=== PATIENT | female | born 1975 | race Caucasian/White ===

== ENCOUNTER → 2017-06-28 22:17 | Outpatient (CLI) | payer BC, SELFPAY ==
[2017-07-01 13:44] LABS: HPV Reflexed? NOT INDICATED
== END ==
PROVIDERS: Family Provider Family Medicine; PCP Family Medicine; Visit Provider Obstetrics & Gynecology
DX: Z12.4 Encounter for screening for malignant neoplasm of cervix (principal)
CPT/HCPCS: 88175; G0145

== ENCOUNTER 2017-09-20 07:51 | Emergency (ER) | payer BC, SELFPAY ==
[2017-09-20 07:53] VITALS: BP 132/82; PULSE 87; RESP 16; TEMP 36.8; O2SAT 100; BMI 23.3
[2017-09-20 07:56] VITALS: O2SAT 100
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
[2017-09-20 08:16] VITALS: BP 127/64; PULSE 71; RESP 16; O2SAT 98
[2017-09-20] MEDS: Naproxen 250 MG Tablet 500 MG PO (08:16)
[2017-09-20] MEDS: Ondansetron ODT 4 MG Tablet PO (08:16)
== END 2017-09-20 08:17 | disposition home or self-care (01) ==
PROVIDERS: Emergency Provider Emergency Medicine; Family Provider Family Medicine; PCP Family Medicine
DX: S16.1XXA Strain of muscle, fascia and tendon at neck level, initial encounter (principal); V43.52XA Car driver injured in collision with other type car in traffic accident, initial encounter; Y93.I9 Activity, other involving external motion; Y92.410 Unspecified street and highway as the place of occurrence of the external cause; Y99.8 Other external cause status
CPT/HCPCS: 99284

== ENCOUNTER → 2017-11-16 12:18 | Outpatient (CLI) | payer BC, SELFPAY ==
--- NOTE | 2017-11-16 12:21 | RAD_ITS ---
STUDY: X-RAY - CERVICAL SPINE REASON FOR EXAM: Female, 42 years old. Pain radiating to left arm TECHNIQUE: 5 view(s) of the cervical spine were obtained. COMPARISON: None FINDINGS: Normal anterior atlantoaxial articulation. Normal odontoid process. Normal cervical lordosis. Normal vertebral bodies and endplates. Normal disc space heights. Normal visualized intervertebral neuroforamina. The soft tissue structures are unremarkable. RAD/Cerv Spine 4 or 5 Views IMPRESSION: Normal x-ray examination of the visualized cervical spine. Electronically Signed: Sean Woodard DO at 14:19 EDT Tel [phone], Service support ,
== END ==
PROVIDERS: Family Provider Family Medicine; PCP Family Medicine; Visit Provider Family Medicine
DX: M79.602 Pain in left arm (principal)
CPT/HCPCS: 72050

== ENCOUNTER 2017-11-30 16:30 | Outpatient (RCR) | payer BC, SELFPAY ==
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
--- NOTE | 2017-11-09 19:09 | HP.PTREVAL_ITS ---
Endy Mchugh, It has been my pleasure to treat PORTIA YANES over the last 8 visits for lateral neck/shoulder. Please see the progress note below for an update on the physical therapy plan of care! Subjective: Pt reports that she has a little bit of pain in the neck....with any activity at home she has pain from the mid back and down to the LB. Dr gave her some meds to make her drowsy to sleep...stronger than a muscle relaxor. Pt reports that the Dr gave her 6 injections and she was in horrible pain and was not a fan of trying dry needling because of the reaction she got from the DR. Pt reports that she does not feel too bad when she leaves here but then that evening and then the neck day it is worse. SHe feels that her back is so stiff if she sleeps on her side. Objective/Function: R handed...R 24# and L 28#. C-spine AROM: flex 100%, Rot B 85%, SB B 85%, Ext 85% ( increase pain). UE MMT: flex, abd ER, and IR B 4/ 5. Palpation: tender along B levator scap...mid traps feels good with minor palpable tightness. Plan Plan: Start postural exercises and scapular exercises. May do some levator sctetches and some MT to that area. See if avoiding MT for a while and work on the postual modification help to decrease her pain. Goals Goal 1:: I HEP Goal Time Frame: 4-6 Weeks Goal 2:: Decrease neck and shoulder blade pain on the L to 1/10 with ADL's Goal Time Frame: 4-6 Weeks Goal 3:: Sit with upright posture duing treatment sessions. Goal Time Frame: 4-6 Weeks Anticipated Interventions Patient/Client Instruction: Educate patient on: Condition, Plan of Care For the Purpose of:: To decrease pain, To decrease swelling/inflammation, To increase ROM, To improve nutrient delivery to tissue, To improve muscle performance and motor function, To improve ability to perform ADL's, To increase tolerance to activity/condition/position, To improve performance and independence with ADL's, To improve ability of physical actions for home/ community/work/leisure, To improve health of tissue, To decrease soft tissue restriction, To increase flexibility/ROM Therapeutic Exercise to Include: Strength training, Postural training, Flexibilty training, Passive ROM, Dynamic Lumbar Stabilization, Scapular Strength/Stabilization For the Purpose of:: To decrease pain, To decrease swelling/inflammation, To increase ROM, To improve nutrient delivery to tissue, To improve muscle performance and motor function, To improve ability to perform ADL's, To increase tolerance to activity/condition/position, To improve ability of physical actions for home/community/work/leisure, To improve health of tissue, To decrease soft tissue restriction, To increase flexibility/ROM Manual Therapy Techniques to Include: Mobilization, Passive ROM, Soft tissue mobilization For the Purpose of:: To decrease pain, To decrease swelling/inflammation, To increase ROM, To improve nutrient delivery to tissue, To improve muscle performance and motor function, To improve ability to perform ADL's, To improve health of tissue, To decrease soft tissue restriction, To increase flexibility/ ROM IF ES: Yes Cryotherapy (ice pack, ice massage): Yes Thermo therapy (hot pack): Yes Ultrasound (thermal/non thermal): Yes For the Purpose of:: To decrease pain, To decrease swelling/inflammation, To increase ROM, To improve nutrient delivery to tissue, To improve muscle performance and motor function, To improve ability to perform ADL's Please do not hesitate to contact me at [phone] by phone or Fax: if you have questions or concerns regarding this new plan of care! Sincerely, Lindsey Pettit
--- NOTE | 2017-11-11 09:50 | HP.PTREVAL_ITS ---
Endy Mchugh, It has been my pleasure to treat PORTIA YANES over the last 8 visits for lateral neck/shoulder. Please see the progress note below for an update on the physical therapy plan of care! Subjective: Pt reports that she has a little bit of pain in the neck....with any activity at home she has pain from the mid back and down to the LB. Dr gave her some meds to make her drowsy to sleep...stronger than a muscle relaxor. Pt reports that the Dr gave her 6 injections and she was in horrible pain and was not a fan of trying dry needling because of the reaction she got from the DR. Pt reports that she does not feel too bad when she leaves here but then that evening and then the neck day it is worse. SHe feels that her back is so stiff if she sleeps on her side. Objective/Function: R handed...R 24# and L 28#. C-spine AROM: flex 100%, Rot B 85%, SB B 85%, Ext 85% ( increase pain). UE MMT: flex, abd ER, and IR B 4/ 5. Palpation: tender along B levator scap...mid traps feels good with minor palpable tightness. Plan Plan: Discussed lack of progress with her pain level and the idea that sometimes trauma pain takes a while to heal. Discussed changing POC from more manual to more postural strengthening. Discussed changing her sleeping position and using a c-spine towel roll inside pillow and to not roll shoulder fw while sleeping. 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 PT Plan: Start postural exercises and scapular exercises. May do some levator sctetches and some MT to that area. See if avoiding MT for a while and work on the postual strength and modification help to decrease her pain. Goals Goal 1:: I HEP Goal Time Frame: 4-6 Weeks Goal 2:: Decrease neck and shoulder blade pain on the L to 1/10 with ADL's Goal Time Frame: 4-6 Weeks Goal 3:: Sit with upright posture duing treatment sessions. Goal Time Frame: 4-6 Weeks Anticipated Interventions Patient/Client Instruction: Educate patient on: Condition, Plan of Care For the Purpose of:: To decrease pain, To decrease swelling/inflammation, To increase ROM, To improve nutrient delivery to tissue, To improve muscle performance and motor function, To improve ability to perform ADL's, To increase tolerance to activity/condition/position, To improve performance and independence with ADL's, To improve ability of physical actions for home/ community/work/leisure, To improve health of tissue, To decrease soft tissue restriction, To increase flexibility/ROM Therapeutic Exercise to Include: Strength training, Postural training, Flexibilty training, Passive ROM, Dynamic Lumbar Stabilization, Scapular Strength/Stabilization For the Purpose of:: To decrease pain, To decrease swelling/inflammation, To increase ROM, To improve nutrient delivery to tissue, To improve muscle performance and motor function, To improve ability to perform ADL's, To increase tolerance to activity/condition/position, To improve ability of physical actions for home/community/work/leisure, To improve health of tissue, To decrease soft tissue restriction, To increase flexibility/ROM Manual Therapy Techniques to Include: Mobilization, Passive ROM, Soft tissue mobilization For the Purpose of:: To decrease pain, To decrease swelling/inflammation, To increase ROM, To improve nutrient delivery to tissue, To improve muscle performance and motor function, To improve ability to perform ADL's, To improve health of tissue, To decrease soft tissue restriction, To increase flexibility/ ROM IF ES: Yes Cryotherapy (ice pack, ice massage): Yes Thermo therapy (hot pack): Yes Ultrasound (thermal/non thermal): Yes For the Purpose of:: To decrease pain, To decrease swelling/inflammation, To increase ROM, To improve nutrient delivery to tissue, To improve muscle performance and motor function, To improve ability to perform ADL's Please do not hesitate to contact me at [phone] by phone or Fax: if you have questions or concerns regarding this new plan of care! Sincerely, Lindsey Pettit
--- NOTE | 2017-11-30 18:00 | HP.PTREVAL_ITS ---
Endy Mchugh, It has been my pleasure to treat PORTIA YANES over the last 12 visits for lateral neck/shoulder. Please see the progress note below for an update on the physical therapy plan of care! Subjective: Pt said that her Dr referred her to Orthopedic and got an appointment but cant get an appointment till Nov. SHe reports that everytime she starts exercise that she gets JOSE for 3 days in a row. After she was here last time and did have JOSE for 3 days and it is a bad JOSE and wont go away. Once the pain is started no matter what she does it will not go away. 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 Pt reports that she defintly has had improvement with neck ROM and as long as that JOSE doesnt come on she is good. Also the back pain is bad with normal movement and ADL's Objective/Function: C-spine AROM: flexion 100%, ext 50% (increase pain), SB B 75%m Rot B 100%. UE MMT: B grossly 4/5 B shld flex, abd, ER, and IR Plan Plan: Hold PT at this point. Pt feels that PT is making her worse. SHe will see if she can get into an ortho Dr earlier and return to Dr Mchugh. Goals Goal 1:: I HEP Goal Time Frame: 4-6 Weeks Goal Progress: Goal Met Goal 2:: Decrease neck and shoulder blade pain on the L to 1/10 with ADL's Goal Time Frame: 4-6 Weeks Goal Progress: Not Progressing Goal 3:: Sit with upright posture duing treatment sessions. Goal Time Frame: 4-6 Weeks Goal Progress: Progressing Anticipated Interventions Patient/Client Instruction: Educate patient on: Condition, Plan of Care For the Purpose of:: To decrease pain, To decrease swelling/inflammation, To increase ROM, To improve nutrient delivery to tissue, To improve muscle performance and motor function, To improve ability to perform ADL's, To increase tolerance to activity/condition/position, To improve performance and independence with ADL's, To improve ability of physical actions for home/ community/work/leisure, To improve health of tissue, To decrease soft tissue restriction, To increase flexibility/ROM Therapeutic Exercise to Include: Strength training, Postural training, Flexibilty training, Passive ROM, Dynamic Lumbar Stabilization, Scapular Strength/Stabilization For the Purpose of:: To decrease pain, To decrease swelling/inflammation, To increase ROM, To improve nutrient delivery to tissue, To improve muscle performance and motor function, To improve ability to perform ADL's, To increase tolerance to activity/condition/position, To improve ability of physical actions for home/community/work/leisure, To improve health of tissue, To decrease soft tissue restriction, To increase flexibility/ROM Manual Therapy Techniques to Include: Mobilization, Passive ROM, Soft tissue mobilization For the Purpose of:: To decrease pain, To decrease swelling/inflammation, To increase ROM, To improve nutrient delivery to tissue, To improve muscle performance and motor function, To improve ability to perform ADL's, To improve health of tissue, To decrease soft tissue restriction, To increase flexibility/ ROM IF ES: Yes Cryotherapy (ice pack, ice massage): Yes Thermo therapy (hot pack): Yes Ultrasound (thermal/non thermal): Yes For the Purpose of:: To decrease pain, To decrease swelling/inflammation, To increase ROM, To improve nutrient delivery to tissue, To improve muscle performance and motor function, To improve ability to perform ADL's Please do not hesitate to contact me at [phone] by phone or Fax: if you have questions or concerns regarding this new plan of care! Sincerely, Lindsey Pettit
--- NOTE | 2018-02-03 12:53 | HP.PT.NRP ---
HP - Discharge Summary (1) - Patient Information PORTIA YANES was seen in my office for initial evaluation on 10/05/17. The following Plan of Care was established for this patient: Initial Frequency: 2x /Week Initial Duration: 6 Weeks - Anticipated Interventions Patient/Client Instruction: Educate patient on: Condition, Plan of Care For the Purpose of:: To decrease pain, To decrease swelling/inflammation, To increase ROM, To improve nutrient delivery to tissue, To improve muscle performance and motor function, To improve ability to perform ADL's, To increase tolerance to activity/condition/position, To improve performance and independence with ADL's, To improve ability of physical actions for home/community/work/leisure, To improve health of tissue, To decrease soft tissue restriction, To increase flexibility/ROM Therapeutic Exercise to Include: Strength training, Postural training, Flexibilty training, Passive ROM, Dynamic Lumbar Stabilization, Scapular Strength/Stabilization For the Purpose of:: To decrease pain, To decrease swelling/inflammation, To increase ROM, To improve nutrient delivery to tissue, To improve muscle performance and motor function, To improve ability to perform ADL's, To increase tolerance to activity/condition/position, To improve ability of physical actions for home/community/work/leisure, To improve health of tissue, To decrease soft tissue restriction, To increase flexibility/ROM Manual Therapy Techniques to Include: Mobilization, Passive ROM, Soft tissue mobilization For the Purpose of:: To decrease pain, To decrease swelling/inflammation, To increase ROM, To improve nutrient delivery to tissue, To improve muscle performance and motor function, To improve ability to perform ADL's, To improve health of tissue, To decrease soft tissue restriction, To increase flexibility/ROM IF ES: Yes Cryotherapy (ice pack, ice massage): Yes Thermo therapy (hot pack): Yes Ultrasound (thermal/non thermal): Yes For the Purpose of:: To decrease pain, To decrease swelling/inflammation, To increase ROM, To improve nutrient delivery to tissue, To improve muscle performance and motor function, To improve ability to perform ADL's This patient was last seen in our office 11/30/17. Pertinent comments regarding their Physical therapy will appear below: Pt was going to go back to physician. [facility]. At this point I will be discontinuing this patient from physical therapy. I would be happy to see this patient again in the future if found appropriate by the physician. Thank you! Lindsey Pettit
== END 2017-11-30 19:00 | disposition home or self-care (01) ==
LOC: PT 16:30
PROVIDERS: Family Provider Family Medicine; PCP Family Medicine; Visit Provider Family Medicine
DX: M54.2 Cervicalgia (principal)
CPT/HCPCS: 97014; 97110; 97140; 97162; 97530; G0283

== ENCOUNTER → 2017-12-09 15:59 | Outpatient (CLI) | payer BC, SELFPAY | PROVIDERS: Family Provider Family Medicine; PCP Family Medicine; Visit Provider Family Medicine | DX: M54.2 Cervicalgia (principal) | CPT/HCPCS: 72141 ==

== ENCOUNTER → 2018-02-20 14:42 | Outpatient (CLI) | payer BC, SELFPAY | PROVIDERS: Visit Provider Obstetrics & Gynecology | DX: R30.0 Dysuria (principal); R31.9 Hematuria, unspecified; R35.0 Frequency of micturition | CPT/HCPCS: 87077; 87086; 87088; 87186 ==

== ENCOUNTER 2023-11-02 15:54 | Emergency (ER) | payer BC, SELFPAY ==
[2023-11-02 15:55] VITALS: BP 145/80; PULSE 65; RESP 18; TEMP 36.9; O2SAT 100; BMI 23.2
--- NOTE | 2023-11-02 16:09 | EKG12_ITS ---
Test Reason : CP Blood Pressure : / mmHG Vent. Rate : 067 BPM Atrial Rate : 067 BPM P-R Int : 102 ms QRS Dur : 090 ms QT Int : 386 ms P-R-T Axes : 031 012 057 degrees QTc Int : 407 ms Sinus rhythm with short ID Otherwise normal ECG Confirmed by SINAI FERMIN, BRIGHT ([id number]), multimedia editor CHRISTIAN GOMEZ ([id number]) on 11/08/2023 1:45:54 PM Referred By: REYES/ASH Confirmed By:KAMINI RAWLS MD
--- NOTE | 2023-11-02 16:09 | RAD_ITS ---
STUDY: X-RAY CHEST REASON FOR EXAM: Female, 48 years old. chest pain TECHNIQUE: AP portable COMPARISON: November 10, 2006 FINDINGS: The lungs are clear and expanded. There is no demonstrated pleural abnormality. Normal size heart. Normal mediastinum and keith. Normal visualized pulmonary arteries. Normal visualized aortic arch and descending thoracic aorta. Dorsal spine demonstrates mild scoliosis or splinting Normal visualized ribs, clavicles, and shoulders. There is no demonstrated abnormality of the visualized soft tissue structures of the upper abdomen. RAD/Chest 1 View (Portable) IMPRESSION: No acute cardiopulmonary pathology. Electronically Signed: Zachary Arce MD at 17:01 EDT ,
--- NOTE | 2023-11-02 16:17 | ED.RN ---
NO OLD EKGS
[2023-11-02 16:20] LABS: Absolute Lymphocyte Count 1.99 X10^3/uL (0.83-4.51); Absolute Neutrophil Count 2.1 X10^3/uL (2.0-7.7); Basophil# 0.02 X10^3/uL; Basophil% 0.4 % (0-1); Eosinophil# 0.08 X10^3/uL; Eosinophils% 1.7 % (0-5); Hematocrit 38.8 % (37-47); Hemoglobin 12.5 g/dL (12.0-15.0); Lymphocyte # 1.99 X10^3/ul (0.83-4.51); Lymphocyte % 43.1 % (19-41); Mean Corp Hgb Conc 32.2 g/dL (32-36); Mean Corpuscular Hgb 26.3 pg (27.0-32.0); Mean Corpuscular Volume 81.7 fL (81-99); Mean Platelet Vol. 10.5 fl (6.2-12.0); Monocyte% 8.7 % (0-10); NRBC Flagged by Analyzer 0 % (0-5); Neutrophil # 2.11 X10^3/uL (2.7-7.7); Neutrophil % 45.7 % (47-70); Platelet Count 199 K/mm3 (150-450); RBC Distribution Width CV 14.4 % (11.6-14.6); Red Blood Count 4.75 M/mm3 (4.2-5.4); White Blood Count 4.6 K/mm3 (4.4-11.0)
--- NOTE | 2023-11-02 16:23 | EDS_ITS ---
HPI History of Present Illness Chief Complaint: Chest Pain Narrative Narrative: 48-year-old female presenting with chest pain which started last evening. She states it started about 8 and was about a 6/10 until midnight when she fell asleep. She woke up today and states she felt better although she had a low- grade pressure-like feeling in her left chest. She states that she ate a lunch meat sandwich today which is not atypical for her. She started to have epigastric pain from 2-3 which is now better. She states she had a little bit of nausea with it. She states the pain in her epigastric region today radiated to her back. She denies fever, chills, myalgias. She denies cardiac history. No history of DVT/PE no risk factors. Patient denies smoking and alcohol use. PFSH PFS Medical History Environmental allergies Bilateral headaches Home Medications ?Medication ?Instructions ?Recorded ?Last Taken ?Type hydrocodone-acetaminophen 5-325mg 1 - 2 ea PO 4X/DAY PRN PRN Pain 3 09/20/17 Unknown Rx 5mg-325mg ([facility]) days #12 tabs naproxen 500 mg tablet 500 mg PO BID #14 tabs 09/20/17 Unknown Rx ondansetron 4 mg disintegrating 4 mg PO Q8H PRN PRN Nausea #10 tabs 09/20/17 Unknown Rx tablet Allergy/AdvReac Type Severity Reaction Status Date / Time Seasonal Allergies: Uncoded Allergy NEEDS Verified 11/02/23 15:55 FOLLOW-UP Family History Other Hypertension Social History Smoking Status: Never smoker alcohol intake: never substance use type: does not use what type of physical activity do you participate in: none ROS ROS ED Constitutional Constitutional ED: Denies chills, fever(s) or sweats Eyes Eyes: Denies blurry vision or change in vision ENT ENT ED: Denies ear pain or sore throat Cardiovascular Cardiovascular: Reports chest pain; Denies palpitations or racing heartbeat Respiratory/Chest Respiratory/Chest: Denies cough, dyspnea or sputum Gastrointestinal Gastrointestinal: Reports abdominal pain and nausea; Denies constipation, diarrhea or vomiting Genitourinary Genitourinary ED: Denies dysuria, hematuria or urinary frequency Musculoskeletal Musculoskeletal: Denies arthralgias, myalgias or neck pain Integumentary Denies abscess, Abrasions or rash Neurologic Neurologic: Denies headache(s), paresthesias or weakness Psychiatric Psychiatric: Denies anxiety, depression, suicidal ideation or suicidal thoughts Endocrine Endocrinology: Denies polydipsia or polyuria EXAM Physical Exam Const Vital Signs: 11/02/23 15:55 11/02/23 16:26 11/02/23 17:02 Temperature 98.4 F Temperature Source Oral Pulse Rate 65 57 L Respiratory Rate 18 18 Blood Pressure 145/80 H 143/96 H Blood Pressure Mean 101 111 Pulse Ox 100 99 Oxygen Delivery Method Room Air Room Air Room Air 11/02/23 17:49 Temperature 98.4 F Temperature Source Pulse Rate 61 Respiratory Rate 10 L Blood Pressure 126/79 H Blood Pressure Mean 94 Pulse Ox 98 Oxygen Delivery Method Positive well nourished General Appearance ED: NAD HEENT Reports moist mucous membranes normocephalic and atraumatic Chest Wall inspection of chest normal Resp normal respiratory effort and clear to auscultation bilaterally Auscultation: Negative for rales, rhonchi or wheezes Cardio regular rate and regular rhythm GI normal to inspection, nondistended, normoactive bowel sounds, soft to palpation, non-tender and non-distended Back/Spine no CVA tenderness and no thoracic nor lumbar tenderness Neuro oriented x3 and CN's II-XII intact bilaterally Sensorium / Orientation: awake and alert Psych mental status grossly normal Skin no rashes or lesions noted and no wounds Heart Score History: Slightly/Non-Suspicious ECG: Normal Age: >45 - <65 years Risk Factors: No Risk Factors Troponin: </= Normal Limit Score: 1 MDM MDM MDM Narrative Medical decision making narrative: Patient presenting with chest pain. Differential includes but is not limited to ACS, PE, aortic dissection, pneumonia, pneumothorax, muscle strain, costochondritis. Patient is however PERC negative. Patient is not having tearing sensation to suggest dissection. She has equal symmetric breath sounds chest wall rise due to lightheadedness on MiraLAX. She is also having abdominal pain however she is not tender on exam. Differential also includes colitis, diverticulitis, gastritis, pancreatitis, cholelithiasis, cholecystitis, constipation, appendicitis, obstruction, malignancy, dehydration, electrolyte abnormalities. CBC will be obtained to assess white blood cell count, hemoglobin, platelets. CMP to assess renal function, electrolytes, liver function, glucose. Lipase to assess for pancreatitis. Urinalysis to assess for UTI. High-sensitivity troponin and EKG to assess for ischemia/dysrhythmia. Chest x-ray to rule out pneumonia. Patient declines analgesia at this time. EKG interpreted by myself shows a sinus rhythm at 67 bpm without sign of ischemic change. CBC shows normal white blood cell count at 4.6. Hemoglobin 12.5. Platelets normal 199. Renal function and electrolytes within normal limits. LFTs are normal. Lipase is normal. Chest x-ray interpreted by myself shows no acute cardiopulmonary process. Radiologist interprets this and agrees. Given the patient has had this pain since yesterday I do not believe she is a delta troponin. We did discuss this at length and she did inform me that she started a vigorous workout routine which she does not normally do including back exercises and chest Fly movements. I believe this is most like the cause of her pain. I counseled her to alternate Tylenol and ibuprofen. Return precautions discussed. Impression: 1. Chest pain 2. Abdominal pain Lab Data Attestation: I reviewed the patient's lab results. Labs: Laboratory Results - last 24 hr 11/02/23 16:13 WBC 4.6 RBC 4.75 Hgb 12.5 Hct 38.8 MCV 81.7 MCH 26.3 L MCHC 32.2 RDW Std Deviation 42.0 RDW Coeff of Ryan 14.4 Plt Count 199 MPV 10.5 Immature Gran % (Auto) 0.400 Neut % (Auto) 45.7 L Lymph % (Auto) 43.1 H Hyde % (Auto) 8.7 Eos % (Auto) 1.7 Baso % (Auto) 0.4 Absolute Neuts (auto) 2.1 Absolute Lymphs (auto) 1.99 Nucleated RBC % 0 Sodium 142 Potassium 3.5 Chloride 109 H Carbon Dioxide 27.0 Anion Gap 6 BUN 12 Creatinine 0.58 Estim Creat Clear Calc 104.66 Est GFR (MDRD) Af Amer 143 Est GFR (MDRD) Non-Af 118 BUN/Creatinine Ratio 20.5 H Glucose 83 Calcium 9.2 Total Bilirubin 0.50 Direct Bilirubin 0.11 AST 10 L ALT 16 Alkaline Phosphatase 57 Troponin I High Sens 3 Total Protein 7.4 Albumin 3.9 Globulin 3.5 Lipase 44 Radiography Diagnostic Testing: Clinical Impression(s) from Imaging Studies Chest X-Ray 11/02/23 16:09 IMPRESSION: No acute cardiopulmonary pathology. Electronically Signed: Zachary Arce MD at 17:01 EDT Reading Location ID and State: [address] [place] [address] Tel , Service support , Discharge Plan Triage Chief Complaint: Chest Pain ED Provider: Juan Ann Dx/Rx/DC Orders Instructions: ED Abdominal Pain Unkn Cause Fem, ED Chest Pain, Noncardiac Prescriptions: No Action hydrocodone-acetaminophen [[facility]] 1 EACH tablet 1 - 2 ea PO 4X/DAY PRN PRN (Reason: Pain) 3 Days Qty: 12 0RF ondansetron 4 MG tablet 4 mg PO Q8H PRN PRN (Reason: Nausea) Qty: 10 0RF naproxen 500 MG tablet 500 mg PO BID Qty: 14 0RF Primary Care Provider: Alan Hammond Referrals: Endy Mchugh MD [Med Staff - [facility] [employer]] - Print Language: Erit[place] Disposition Disposition: Home, Self Care Discharge Date/Time: 11/02/23 17:54
[2023-11-02] MEDS: Aspirin 81 MG TAB.CHEW 324 MG PO (16:30)
[2023-11-02 16:38] LABS: AST(SGOT) 10 U/L (15-37); Alanine Aminotransfer ALT/SGPT 16 U/L (13-56); Albumin, Serum 3.9 g/dL (3.2-5.0); Alkaline Phosphatase 57 U/L (45-117); Anion Gap 6 (5-15); BUN 12 mg/dL (7-18); BUN/Creat Ratio 20.5 RATIO (10-20); Bilirubin, Direct 0.11 mg/dL (0.00-0.30); Calcium,Total 9.2 mg/dL (8.5-10.1); Chloride 109 mmol/L (98-107); Creatinine, Serum 0.58 mg/dL (0.55-1.02); EST Glomerular Filtration Rate 118 mL/min (>60); Est Glom Filt Rate - Afr Amer 143 mL/min (>60); Estimated Creatinine Clearance 104.66 ml/min; Globulin 3.5 g/dL (2.2-4.2); Glucose 83 mg/dL (74-106); Lipase 44 U/L (13-75); Potassium 3.5 mmol/L (3.5-5.1); Protein, Total 7.4 g/dL (6.4-8.2); Sodium Level 142 mmol/L (136-145); Troponin-I HS 3 pg/mL (3.0-54.0)
[2023-11-02 17:02] VITALS: BP 143/96; PULSE 57; RESP 18; O2SAT 99
[2023-11-02 17:49] VITALS: BP 126/79; PULSE 61; RESP 10; TEMP 36.9; O2SAT 98
== END 2023-11-02 17:54 | disposition home or self-care (01) ==
PROVIDERS: Emergency Provider Student in an Organized Health Care Education/Training Program; PCP Family Medicine; Visit Provider Student in an Organized Health Care Education/Training Program
DX: R07.9 Chest pain, unspecified (principal); R10.9 Unspecified abdominal pain; R42 Dizziness and giddiness
CPT/HCPCS: 71045; 80048; 80076; 83690; 84484; 85025; 93005; 99284; A4216